=== PATIENT | male | born 1985 | race Caucasian/White ===

== ENCOUNTER → 2023-05-20 | Outpatient (CLI) | payer OTHER | LOC: MHCPAIN 13:55 | DX: M54.50 Low back pain, unspecified (principal); M54.2 Cervicalgia ==

== ENCOUNTER → 2023-05-20 | Outpatient (CLI) | payer OTHER | LOC: COL.RAD 15:20 | DX: M50.30 Other cervical disc degeneration, unspecified cervical region (principal); M51.37 Other intervertebral disc degeneration, lumbosacral region ==